=== PATIENT | female | born 1955 | race Caucasian/White ===

== ENCOUNTER 2016-08-19 16:55 | Inpatient (IN) | payer OTHER ==
[~2016-08-19] VITALS: Ht 165.1 cm; Wt 52.8 kg
[~2016-08-19 16:55] MED LIST: BENTYL20 MG PO; KLO0.5 PO; NOR10T PO; NOR5 PO; NORCO1 TA2 PO; PENTASA500 M1 PO; PEPCID20 MG PO; PREMARIN0.3 MG PO; PROTONIX40 MG PO
[2016-08-19 19:36] LABS: BASOPHIL % 0.4 % (0-2); PLATELET COUNT 323 x10^3mcL (130-400); RED CELL DISTRIBUTION WIDTH 13.6 % (11.5-14.5)
[2016-08-19 19:47] LABS: CALCIUM 9.2 mg/dL (8.5-10.1); CARBON DIOXIDE 30.9 mmol/L (21-32); CHLORIDE SERUM 108 mmol/L (98-107); CREATININE SERUM 0.7 mg/dL (0.6-1.0); GFR1 > 60 mL/min; GLUCOSE SERUM 105 mg/dL (74-106); POTASSIUM SERUM 4.5 mmol/L (3.5-5.1); SODIUM SERUM 144 mmol/L (136-145)
[2016-08-19 19:52] LABS: ALBUMIN 3.7 g/dL (3.4-5.0); ALKALINE PHOSPHATASE 90 U/L (46-116); ALT/SGPT 22 U/L (14-59); AST/SGOT 20 U/L (15-37); BILIRUBIN TOTAL 0.26 mg/dL (0.20-1.00); LIPASE 538 IU/L (73-393)
[2016-08-19 20:44] LABS: microscopic required? YES; urine erythrocyte 1+ (NEGATIVE)
[2016-08-19 23:04] VITALS: BP 155/84
[2016-08-19 23:19] LABS: T3 TOTAL 0.95 ng/mL
[2016-08-19 23:31] LABS: CHOLESTEROL/HDL RATIO 3.8; MAGNESIUM 1.7 mg/dL (1.8-2.4); PHOSPHOROUS 3.6 mg/dL (2.5-4.9)
[2016-08-19 23:45] LABS: FREE T4 0.98 ng/dL (0.76-1.46); FREE THYROXINE INDEX 2.2 ug/dL (1.4-4.5); T4(THYROXINE) 6.8 ug/dL (4.7-13.3)
[2016-08-20 04:10] LABS: AMPHETAMINE QUAL UR POSITIVE (NEG <=1000)
[2016-08-20 05:43] VITALS: BP 102/59
[2016-08-20 06:26] LABS: BASOPHIL % 0.5 % (0-2); PLATELET COUNT 240 x10^3mcL (130-400); RED CELL DISTRIBUTION WIDTH 13.2 % (11.5-14.5)
[2016-08-20 06:46] LABS: CALCIUM 8.4 mg/dL (8.5-10.1); CARBON DIOXIDE 30.2 mmol/L (21-32); CHLORIDE SERUM 108 mmol/L (98-107); CREATININE SERUM 0.8 mg/dL (0.6-1.0); GFR1 > 60 mL/min; GLUCOSE SERUM 81 mg/dL (74-106); MAGNESIUM 2.8 mg/dL (1.8-2.4); POTASSIUM SERUM 4.3 mmol/L (3.5-5.1); SODIUM SERUM 142 mmol/L (136-145)
[2016-08-20 14:19] VITALS: BP 96/55
[2016-08-20 17:16] VITALS: BP 117/66
[2016-08-20 21:02] VITALS: BP 98/59
[2016-08-21 06:10] VITALS: BP 103/62
[2016-08-21 09:15] VITALS: BP 98/57
[2016-08-21] MEDS ORDERED: ELA25 PO (10:27)
[2016-08-21] MEDS ORDERED: LAC30L PO (10:32)
[2016-08-21 10:58] VITALS: BP 98/57
[2016-08-21] MEDS ORDERED: NOR10T PO (13:50)
== END 2016-08-21 14:43 | disposition home or self-care (01) | DRG 438 ==
LOC: ED 16:55 → MU 22:15 → DU 22:15 → MU 08-20 08:57
PROVIDERS: Emergency Medicine; ADMIT Family Medicine
DX: K85.90 Acute pancreatitis without necrosis or infection, unspecified (principal); N17.0 Acute kidney failure with tubular necrosis; K59.00 Constipation, unspecified; T40.0X5A Adverse effect of opium, initial encounter; K76.0 Fatty (change of) liver, not elsewhere classified; R31.9 Hematuria, unspecified; E83.42 Hypomagnesemia; T14.90 Injury, unspecified; G89.4 Chronic pain syndrome; M06.9 Rheumatoid arthritis, unspecified; I10 Essential (primary) hypertension; F41.9 Anxiety disorder, unspecified; E78.5 Hyperlipidemia, unspecified; Z79.891 Long term (current) use of opiate analgesic; Z85.42 Personal history of malignant neoplasm of other parts of uterus; Z90.710 Acquired absence of both cervix and uterus; V89.2XXS Person injured in unspecified motor-vehicle accident, traffic, sequela; Y92.009 Unspecified place in unspecified non-institutional (private) residence as the place of occurrence of the external cause
CPT/HCPCS: 80307; 83880; 84439; J1885; J2270; J3475; J7030; Q0092; Q0162; Q9966

== ENCOUNTER 2016-08-26 18:30 | Emergency (ER) | payer OTHER ==
[~2016-08-26 18:30] MED LIST changes: +ELA25 PO; +LAC30L PO
[2016-08-26 19:17] VITALS: BP 126/80
== END 2016-08-26 20:40 | disposition left against medical advice (07) ==
LOC: ED 18:30
DX: Z53.21 Procedure and treatment not carried out due to patient leaving prior to being seen by health care provider (principal)

== ENCOUNTER 2016-08-31 09:47 | Emergency (ER) | payer OTHER ==
[2016-08-31 12:00] LABS: BASOPHIL % 0.4 % (0-2); PLATELET COUNT 268 x10^3mcL (130-400); RED CELL DISTRIBUTION WIDTH 12.8 % (11.5-14.5)
[2016-08-31 12:26] VITALS: BP 126/69
[2016-08-31 12:40] LABS: ALBUMIN 3.7 g/dL (3.4-5.0); ALKALINE PHOSPHATASE 84 U/L (46-116); ALT/SGPT 20 U/L (14-59); AMYLASE 92 U/L (25-115); AST/SGOT 17 U/L (15-37); BILIRUBIN TOTAL 0.51 mg/dL (0.20-1.00); CARBON DIOXIDE 28.2 mmol/L (21-32); CHLORIDE SERUM 106 mmol/L (98-107); CREATININE SERUM 0.8 mg/dL (0.6-1.0); GFR1 > 60 mL/min; GLUCOSE SERUM 119 mg/dL (74-106); LIPASE 254 IU/L (73-393); POTASSIUM SERUM 3.9 mmol/L (3.5-5.1); SODIUM SERUM 140 mmol/L (136-145)
== END 2016-08-31 13:35 | disposition left against medical advice (07) ==
LOC: ED 09:47
PROVIDERS: Emergency Medicine
DX: G89.29 Other chronic pain (principal); R10.9 Unspecified abdominal pain; F11.20 Opioid dependence, uncomplicated; I10 Essential (primary) hypertension; M06.9 Rheumatoid arthritis, unspecified; F17.210 Nicotine dependence, cigarettes, uncomplicated; F15.90 Other stimulant use, unspecified, uncomplicated
CPT/HCPCS: 83880; J1885

== ENCOUNTER 2017-05-22 21:19 | Emergency (ER) | payer OTHER ==
[2017-05-23 02:42] VITALS: BP 129/71
== END 2017-05-23 02:42 | disposition home or self-care (01) ==
LOC: ED 21:19
DX: J11.1 Influenza due to unidentified influenza virus with other respiratory manifestations (principal); I10 Essential (primary) hypertension; M06.9 Rheumatoid arthritis, unspecified; Z88.3 Allergy status to other anti-infective agents; Z90.710 Acquired absence of both cervix and uterus; Z85.42 Personal history of malignant neoplasm of other parts of uterus
CPT/HCPCS: Q0162

== ENCOUNTER → 2017-07-05 | Outpatient (CLI) | payer OTHER | END | disposition home or self-care (01) | LOC: RD 19:48 | DX: M54.2 Cervicalgia (principal) ==

== ENCOUNTER → 2017-09-12 | Outpatient (CLI) | payer OTHER | END | disposition home or self-care (01) | LOC: CANPRECLI → MA 08-29 13:00 | DX: Z12.31 Encounter for screening mammogram for malignant neoplasm of breast (principal) | CPT/HCPCS: 77067 ==

== ENCOUNTER 2018-11-06 23:41 | Emergency (ER) | payer OTHER ==
[~2018-11-06] VITALS: Ht 165.1 cm; Wt 63.0 kg
[2018-11-06 23:51] VITALS: Ht 165.1 cm; Wt 63.0 kg
[2018-11-07 01:32] LABS: CALCIUM 9.4 mg/dL (8.5-10.1); CARBON DIOXIDE 23.8 mmol/L (21-32); CHLORIDE SERUM 108 mmol/L (98-107); CREATININE SERUM 0.9 mg/dL (0.6-1.0); GFR1 > 60 mL/min; GLUCOSE SERUM 113 mg/dL (74-106); POTASSIUM SERUM 3.8 mmol/L (3.5-5.1); SODIUM SERUM 144 mmol/L (136-145)
[2018-11-07 01:38] LABS: ALBUMIN 3.9 g/dL (3.4-5.0); ALKALINE PHOSPHATASE 156 U/L (46-116); ALT/SGPT 20 U/L (14-59); AST/SGOT 16 U/L (15-37); BILIRUBIN TOTAL 0.36 mg/dL (0.20-1.00)
[2018-11-07 01:43] LABS: TOTAL PROTEIN, SERUM 8.3 g/dL (6.4-8.2)
[2018-11-07 01:57] LABS: BASOPHIL % 0.4 % (0-2); PLATELET COUNT 354 x10^3mcL (130-400); RED CELL DISTRIBUTION WIDTH 13.5 % (11.5-14.5)
[2018-11-07 03:09] VITALS: BP 128/92
== END 2018-11-07 03:09 | disposition home or self-care (01) ==
LOC: ED 23:41
PROVIDERS: Emergency Medicine
DX: R60.9 Edema, unspecified (principal); I10 Essential (primary) hypertension; F41.9 Anxiety disorder, unspecified; M06.9 Rheumatoid arthritis, unspecified; Z98.890 Other specified postprocedural states; Z90.710 Acquired absence of both cervix and uterus; Z88.8 Allergy status to other drugs, medicaments and biological substances
CPT/HCPCS: 36415; 83880; J1885; J2270

== ENCOUNTER → 2019-02-28 | Outpatient (CLI) | payer OTHER | END | disposition home or self-care (01) | LOC: RD 17:24 | PROC: B54DZZZ Ultrasonography of Bilateral Lower Extremity Veins (ICD-10-PCS; principal; 2019-02-28) | DX: M25.572 Pain in left ankle and joints of left foot (principal); M25.571 Pain in right ankle and joints of right foot; M79.672 Pain in left foot; M79.671 Pain in right foot ==

== ENCOUNTER 2019-05-05 14:45 | Emergency (ER) | payer OTHER ==
[~2019-05-05] VITALS: Ht 165.1 cm; Wt 64.1 kg
[2019-05-05 15:17] VITALS: BP 141/78; Ht 165.1 cm; Wt 64.1 kg
== END 2019-05-05 18:10 | disposition home or self-care (01) ==
LOC: ED 14:45
DX: S16.1XXA Strain of muscle, fascia and tendon at neck level, initial encounter (principal); I10 Essential (primary) hypertension; M06.9 Rheumatoid arthritis, unspecified; Z90.710 Acquired absence of both cervix and uterus; X50.0XXA Overexertion from strenuous movement or load, initial encounter; Y93.89 Activity, other specified; Y92.89 Other specified places as the place of occurrence of the external cause; Y99.8 Other external cause status
CPT/HCPCS: J1885

== ENCOUNTER 2019-07-10 16:53 | Emergency (ER) | payer OTHER ==
[~2019-07-10] VITALS: Ht 165.1 cm; Wt 63.0 kg
[2019-07-10 17:13] VITALS: Ht 165.1 cm; Wt 63.0 kg
[2019-07-10 21:26] VITALS: BP 105/64
== END 2019-07-10 21:26 | disposition home or self-care (01) ==
LOC: ED 16:53
DX: R22.42 Localized swelling, mass and lump, left lower limb (principal); M79.605 Pain in left leg; I10 Essential (primary) hypertension; M06.9 Rheumatoid arthritis, unspecified; Z85.42 Personal history of malignant neoplasm of other parts of uterus; Z90.710 Acquired absence of both cervix and uterus; Z88.5 Allergy status to narcotic agent
CPT/HCPCS: Q0092; Q0162